=== PATIENT | male | born 1965 | race Caucasian/White ===

== ENCOUNTER 2016-05-29 14:08 | Emergency (ER) | payer OTHER ==
[~2016-05-29] VITALS: Ht 167.6 cm; Wt 72.6 kg
[~2016-05-29 14:08] MED LIST: BACTROBAN CREAM15 GM T; BLEPH-10 15 ML15 ML OPH; CEPHALEXIN500 M1 PO; CLEOCIN150 MG PO; FLEXERIL10 MG PO; KEFLEX500 MG PO; LIDEX 0.05% CRE15 GM T; Motrin,Rufen800 MG PO; NAPROSYN250 MG PO; NORCO 325 MG-51 TAB PO; PERCOCET 325 MG1 TA2 PO; Saline Flush Syr5 ML IV; ULTRAM50 MG PO; VICODIN 500 MG-1 TAB PO; VOLTAREN GEL1% TP; Zofran4 MG PO
[2016-05-29 14:14] VITALS: BP 162/98
[2016-05-29] MEDS ORDERED: BACTRIM DS 8001 TA1 PO (14:29)
[2016-05-29] MEDS ORDERED: NAPROSYN500 MG PO (14:32)
== END 2016-05-29 14:19 | disposition home or self-care (01) ==
LOC: ED 14:08
DX: J34.0 Abscess, furuncle and carbuncle of nose (principal); F17.200 Nicotine dependence, unspecified, uncomplicated

== ENCOUNTER 2016-08-27 08:21 | Emergency (ER) | payer OTHER ==
[~2016-08-27] VITALS: Ht 170.1 cm; Wt 77.1 kg
[~2016-08-27 08:21] MED LIST changes: +BACTRIM DS 8001 TA1 PO; +NAPROSYN500 MG PO
[2016-08-27 08:35] VITALS: BP 126/70
[2016-08-27] MEDS ORDERED: CLINDAMYCIN150 MG PO (09:56)
[2016-08-27] MEDS ORDERED: PERCOCET 325 MG1 TA2 PO (09:56)
== END 2016-08-27 10:04 | disposition home or self-care (01) ==
LOC: ED 08:21
DX: L02.01 Cutaneous abscess of face (principal); L03.211 Cellulitis of face; F12.10 Cannabis abuse, uncomplicated; F17.200 Nicotine dependence, unspecified, uncomplicated; F14.10 Cocaine abuse, uncomplicated; J45.909 Unspecified asthma, uncomplicated

== ENCOUNTER 2017-05-31 16:57 | Emergency (ER) | payer OTHER ==
[~2017-05-31] VITALS: Ht 170.1 cm; Wt 79.4 kg
[~2017-05-31 16:57] MED LIST changes: +CLINDAMYCIN150 MG PO
[2017-05-31] MEDS ORDERED: BUPREN/NALOX SUB 8-2 (17:07)
[2017-05-31 17:41] LABS: BASO # 0.1 10*3/uL (0.0-0.1); BASO % 0.7 % (0.0-1.0); EOS # 0.1 10*3/uL (0.0-0.4); EOS % 0.6 % (1.0-4.0); HEMOGLOBIN 16.2 g/dl (14.0-18.0); LYMPH # 2.7 10*3/uL (1.3-4.4); LYMPH % 32.4 % (27.0-41.0); MEAN CELL VOLUME 91.3 fl (80.0-94.0); MEAN CORPUSCULAR HGB 32.1 pg (27.0-31.0); MEAN CORPUSCULAR HGB CONC 35.2 g/dl (33.0-37.0); MEAN PLATELET VOLUME 10.9 fl (9.6-12.3); MONO # 0.5 10*3/uL (0.1-1.0); MONO % 5.9 % (3.0-9.0); NEUT # 5.1 10*3/uL (2.3-7.9); NEUT % 60.3 % (47.0-73.0); PLATELET COUNT AUTOMATED 165 10*3/uL (130-400); RED BLOOD COUNT 5.04 10*6/uL (4.50-5.90); WHITE BLOOD COUNT 8.5 10*3/uL (4.8-10.8)
[2017-05-31 17:57] LABS: BILIRUBIN NEGATIVE (NEGATIVE); BLOOD NEGATIVE (NEGATIVE); CLARITY SL CLOUDY (CLEAR); COLOR YELLOW (YELLOW); GLUCOSE NEGATIVE (NEGATIVE); KETONE TRACE (NEGATIVE); LEUKO ESTERASE NEGATIVE (NEGATIVE); NITRITE NEGATIVE (NEGATIVE); PH 5.5 (5.0-9.0); SPECIFIC GRAVITY 1.025 (1.005-1.030); UROBILINOGEN 0.2 E.U./dl (0.2-1.0)
[2017-05-31 17:59] LABS: ALBUMIN 4.3 gm/dl (3.1-4.5); ALKALINE PHOSPHATASE 90 U/L (45-117); BUN 14 mg/dl (7-24); CHLORIDE 105 mmol/L (98-107); CREATININE 1.15 mg/dL (0.70-1.30); ETHYL ALCOHOL < 3.0 mg/dl (<3); POTASSIUM 3.6 mmol/L (3.5-5.1); SGOT/AST 125 IU/L (3-35); SGPT/ALT 239 U/L (12-78); SODIUM 140 mmol/L (136-145); TOTAL PROTEIN 8.8 gm/dL (6.4-8.2)
[2017-05-31 18:01] LABS: EPITHELIAL CELLS 0-2; RBC 0-2 rbc/hpf (0-2); WBC 0-2 wbc/hpf (0-5)
[2017-05-31 18:02] LABS: BACTERIA TRACE
[2017-05-31 18:07] LABS: URINE AMPHETAMINES < 1000 (1000ng/ml); URINE BARBITURATES < 200 (200ng/ml); URINE BENZODIAZEPINES < 200 (200ng/ml); URINE CANNABINOIDS (THC) > 50 (50ng/ml); URINE COCAINE > 300 (300ng/ml); URINE METHADONE < 300 (300ng/ml); URINE OPIATES < 300 (300ng/ml)
[2017-05-31 18:11] LABS: URINE PHENCYCLIDINE < 25 (25ng/ml)
[2017-06-01 08:32] VITALS: BP 120/70
== END 2017-06-01 12:32 | disposition short-term general hospital (02) ==
LOC: ED 16:57
PROVIDERS: Emergency Medicine
DX: F32.9 Major depressive disorder, single episode, unspecified (principal); F19.10 Other psychoactive substance abuse, uncomplicated; R74.0 Nonspecific elevation of levels of transaminase and lactic acid dehydrogenase [LDH]; F17.200 Nicotine dependence, unspecified, uncomplicated

== ENCOUNTER 2017-09-21 11:49 | Emergency (ER) | payer MEDICAID ==
[~2017-09-21] VITALS: Ht 170.1 cm; Wt 86.2 kg
[~2017-09-21 11:49] MED LIST changes: +BUPREN/NALOX SUB 8-2
[2017-09-21 11:54] VITALS: BP 144/88
[2017-09-21 12:57] LABS: URINE AMPHETAMINES < 1000 (1000ng/ml); URINE BARBITURATES < 200 (200ng/ml); URINE BENZODIAZEPINES < 200 (200ng/ml); URINE CANNABINOIDS (THC) > 50 (50ng/ml); URINE COCAINE > 300 (300ng/ml); URINE METHADONE < 300 (300ng/ml); URINE OPIATES < 300 (300ng/ml)
[2017-09-21 12:58] LABS: URINE PHENCYCLIDINE < 25 (25ng/ml)
== END 2017-09-21 13:50 | disposition home or self-care (01) ==
LOC: ED 11:49
PROVIDERS: Emergency Medicine
DX: F19.10 Other psychoactive substance abuse, uncomplicated (principal); F12.10 Cannabis abuse, uncomplicated; F14.10 Cocaine abuse, uncomplicated; F17.200 Nicotine dependence, unspecified, uncomplicated; I25.10 Atherosclerotic heart disease of native coronary artery without angina pectoris; J45.909 Unspecified asthma, uncomplicated; Z87.11 Personal history of peptic ulcer disease; Z98.890 Other specified postprocedural states

== ENCOUNTER 2019-01-29 13:52 | Emergency (ER) | payer OTHER ==
[~2019-01-29] VITALS: Ht 170.1 cm; Wt 77.1 kg
[~2019-01-29 13:52] MED LIST changes: +PREDNISONE20 M1 PO; +VISTARIL25 MG PO
[2019-01-29 13:53] VITALS: BP 144/89
[2019-01-29] MEDS ORDERED: TESSALON PERLE100 M1 PO (14:48)
[2019-01-29] MEDS ORDERED: PROVENTIL HFA6.7 GM INH (14:48)
[2019-01-29] MEDS ORDERED: DOXYCYCLINE100 M3 PO (14:48)
[2019-01-29] MEDS ORDERED: PREDNISONE20 M1 PO (14:48)
== END 2019-01-29 15:53 | disposition home or self-care (01) ==
LOC: ED 13:52
DX: J45.909 Unspecified asthma, uncomplicated (principal); F17.200 Nicotine dependence, unspecified, uncomplicated

== ENCOUNTER 2019-04-19 15:07 | Observation (INO) | payer OTHER ==
[~2019-04-19] VITALS: Ht 165.1 cm; Wt 73.9 kg
--- NOTE | ~2019-04-19 | EKG ---
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
--- NOTE | ~2019-04-19 | EKG ---
[place], [place] ELECTROCARDIOGRAM REPORT NAME: RACHEAL HOYT UNIT #: [id number] ROOM: 407 DOCTOR: HARIKA DRAFT REPORT BIRTHDATE: [birth year] 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1965 Requested By: DEREK BALL Order Number: [id number] Reading MD: Cher Sanchez MD Measurements Intervals Maxie Rate: 59 P: -82 OK: 171 QRS: 5 QRSD: 83 T: -18 QT: 423 QTc: 419 Interpretive Statements Sinus or ectopic atrial rhythm RSR' in V1 or V2, right VCD or RVH LVH by voltage Nonspecific T abnormalities, inferior leads Compared to ECG 10/17/2018 15:02:40 Ectopic atrial rhythm now present Left ventricular hypertrophy now present T-wave abnormality now present Sinus rhythm no longer present Electronically Signed On 04-20-2019 9:22:17 PST by Cher Sanchez MD CM:EKGRPT:ELECTROCARDIOGRAM REPORT [id number] DEREK SHABAZZ DRAFT REPORT DEREK BALL M.D.
--- NOTE | ~2019-04-19 | EKG ---
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
[~2019-04-19 15:07] MED LIST changes: +DOXYCYCLINE100 M3 PO; +PROVENTIL HFA6.7 GM INH; +TESSALON PERLE100 M1 PO
[2019-04-19 15:13] VITALS: BP 131/79
[2019-04-19] MEDS ORDERED: SUBOXONE 8 MG-1 EACH SL (15:16)
[2019-04-19 15:21] LABS: BASO % 0.3 % (0.0-1.0); EOS % 0.4 % (1.0-4.0); HEMATOCRIT 44.9 % (42.0-52.0); HEMOGLOBIN 15.5 g/dl (14.0-18.0); LYMPH # 3.9 10*3/uL (1.3-4.4); LYMPH % 42.3 % (27.0-41.0); MEAN CELL VOLUME 92.4 fl (80.0-94.0); MEAN CORPUSCULAR HGB 31.9 pg (27.0-31.0); MEAN CORPUSCULAR HGB CONC 34.5 g/dl (33.0-37.0); MEAN PLATELET VOLUME 11.3 fl (9.6-12.3); MONO # 0.7 10*3/uL (0.1-1.0); NEUT # 4.5 10*3/uL (2.3-7.9); NEUT % 48.9 % (47.0-73.0); PLATELET COUNT AUTOMATED 150 10*3/uL (130-400); RED BLOOD COUNT 4.86 10*6/uL (4.50-5.90); WHITE BLOOD COUNT 9.1 10*3/uL (4.8-10.8)
[2019-04-19 15:31] LABS: ACT PARTIAL THROMBO TIME 26.3 SECONDS (20.0-32.1)
[2019-04-19 15:39] LABS: ALKALINE PHOSPHATASE 66 U/L (45-117); BUN 12 mg/dl (7-24); CHLORIDE 110 mmol/L (98-107); CREATININE 1.26 mg/dL (0.70-1.30); POTASSIUM 3.4 mmol/L (3.5-5.1); SGOT/AST 34 IU/L (3-35); SGPT/ALT 33 U/L (12-78); SODIUM 142 mmol/L (136-145); TOTAL PROTEIN 7.9 gm/dL (6.4-8.2)
[2019-04-19 15:48] LABS: TROPONIN I < 0.015 ng/ml (<0.045)
[2019-04-19 17:19] LABS: BILIRUBIN NEGATIVE (NEGATIVE); BLOOD NEGATIVE (NEGATIVE); CLARITY CLEAR (CLEAR); COLOR YELLOW (YELLOW); GLUCOSE NEGATIVE (NEGATIVE); KETONE NEGATIVE (NEGATIVE); LEUKO ESTERASE NEGATIVE (NEGATIVE); NITRITE NEGATIVE (NEGATIVE); SPECIFIC GRAVITY 1.025 (1.005-1.030); UROBILINOGEN 0.2 E.U./dl (0.2-1.0)
[2019-04-19 17:34] LABS: CALCIUM OXALATE CRYSTALS 1+
[2019-04-19 17:40] LABS: URINE AMPHETAMINES < 1000 (1000ng/ml); URINE BARBITURATES < 200 (200ng/ml); URINE BENZODIAZEPINES < 200 (200ng/ml); URINE CANNABINOIDS (THC) > 50 (50ng/ml); URINE COCAINE > 300 (300ng/ml); URINE METHADONE < 300 (300ng/ml); URINE OPIATES < 300 (300ng/ml)
[2019-04-19 17:43] LABS: URINE PHENCYCLIDINE < 25 (25ng/ml)
--- NOTE | 2019-04-19 18:02 | NUR ---
[facility] , under the services of JERI Mora DO with a diagnosis of CHEST PAIN. Chief complaint is DENIES C/O. Patient arrived via bed from ER. Monitor applied. Initial assessment completed. Vital signs taken and recorded. JERI MORA DO notified of admission to the unit. Orders received. See assessment for past medical history, medications and allergies. Patient and/or family oriented to unit. [facility] EDU visitation policy reviewed. Clothing/patient valuable form completed. PETEY SALINAS
--- NOTE | 2019-04-19 19:35 | NUR ---
IN TO SEE PATIENT. PATIENT RELAXING RESPIRATIONS EASY, NONLABORED. NO COMPLAINTS OTHER THAN REQUESTING NICOTINE PATCH. PATIENT STATES HE HAS BEEN SMOKING FOR OVER 30 YEARS AND SMOKES HALF A PACK A DAY. CALL LIGHT IS WITHIN REACH. WILL MONITOR.
--- NOTE | 2019-04-19 19:35 | NUR ---
PT REQUESTING NICOTINE PATIENT. PT STATES HE SMOKES A PACK AND A HALF PER DAY. INFORMED. SEE NEW ORDERS.
[2019-04-19 20:00] VITALS: BP 132/78
--- NOTE | 2019-04-19 22:00 | NUR ---
INFORMED PT HAVING MULTIPLE DIAGNOSIS FOR ADMISSION. PER POLICY PT IS TO BE ADMITTED, BUT IS STILL UNDER OBSERVATION. STATED THAT HE WOULD LOOK INTO IT.
[2019-04-20] VITALS: BP 129/73
--- NOTE | 2019-04-20 01:10 | NUR ---
ED REGISTRATION CALLED TO INFORM THEY HAD TO LET PATIENT BACK IN FROM OUTSIDE. UPON ENTERING MY PATIENTS ROOM I NOTICED HE WAS NOT IN HIS ROOM. PT RETURNEDTO HIS ROOM AND STATED HE WAS NOT TRYING TO LEAVE HE JUST WENT TO GET SOME MAGAZINES OUTSIDE AND LOOK AT THE VENDING MACHINE BECAUSE HE WAS HUNGRY. DR. EDUARDO INFORMED OF THE SITUATION AND STATED TO CONTACT THE DIRECTOR [employer]OTHER[employer]PER[employer] AND SEE WHAT SHE WANTED TO BE DONE. DIRECTOR [employer]PER[employer] LILLIE INFORMED AND STATED TO MAKE SURE THE PATIENT KNOWS THAT HE IS NOT ALLOWED TO LEAVE THE FLOOR AND IF HE IS TO LEAVE THE FLOOR AGAIN HE WILL HAVE TO LEAVE. PT STATES THAT HE DID NOT KNOW HE COULDN'T LEAVE AND WILL NOT LEAVE AGAIN.
--- NOTE | 2019-04-20 04:55 | NUR ---
24 HR chart check completed.
[2019-04-20 06:47] LABS: BASO # 0.1 10*3/uL (0.0-0.1); BASO % 0.6 % (0.0-1.0); EOS # 0.1 10*3/uL (0.0-0.4); EOS % 1.4 % (1.0-4.0); HEMATOCRIT 42.3 % (42.0-52.0); HEMOGLOBIN 14.2 g/dl (14.0-18.0); LYMPH # 4.8 10*3/uL (1.3-4.4); MEAN CORPUSCULAR HGB 31.2 pg (27.0-31.0); MEAN CORPUSCULAR HGB CONC 33.6 g/dl (33.0-37.0); MEAN PLATELET VOLUME 11.7 fl (9.6-12.3); MONO # 0.5 10*3/uL (0.1-1.0); MONO % 6.2 % (3.0-9.0); NEUT # 2.5 10*3/uL (2.3-7.9); NEUT % 31.7 % (47.0-73.0); PLATELET COUNT AUTOMATED 144 10*3/uL (130-400); RED BLOOD COUNT 4.55 10*6/uL (4.50-5.90); RED CELL DISTRI WIDTH 13.1 % (0-14.5)
[2019-04-20 07:09] LABS: BUN 11 mg/dl (7-24); CHLORIDE 109 mmol/L (98-107); CREATININE 1.04 mg/dL (0.70-1.30); PHOSPHOROUS 3.7 mg/dL (2.5-4.9); POTASSIUM 4.1 mmol/L (3.5-5.1); SODIUM 142 mmol/L (136-145)
[2019-04-20 08:00] VITALS: BP 136/71
--- NOTE | 2019-04-20 13:22 | NUR ---
[facility] Discharge instructions reviewed with patient/family. Patient receptive and verbalizes understanding. Follow-up care arranged. Written instructions given to patient/family. PETEY SALINAS
== END 2019-04-20 13:22 | disposition home or self-care (01) ==
LOC: ED 15:07 → EDHOLD 16:51 → 4E 16:51
PROVIDERS: Emergency Medicine; Hospitalist; Nurse Practitioner Family; ADMIT Internal Medicine
DX: R07.89 Other chest pain (principal); F41.9 Anxiety disorder, unspecified; F12.10 Cannabis abuse, uncomplicated; F14.10 Cocaine abuse, uncomplicated; F17.210 Nicotine dependence, cigarettes, uncomplicated; E87.6 Hypokalemia; E87.8 Other disorders of electrolyte and fluid balance, not elsewhere classified

== ENCOUNTER 2019-10-15 10:37 | Emergency (ER) | payer OTHER ==
[~2019-10-15] VITALS: Ht 170.1 cm; Wt 83.5 kg
[~2019-10-15 10:37] MED LIST changes: +SUBOXONE 8 MG-1 EACH SL
[2019-10-15 10:44] VITALS: BP 163/85
[2019-10-15 11:06] LABS: BASO % 0.5 % (0.0-1.0); EOS # 0.1 10*3/uL (0.0-0.4); EOS % 1.5 % (1.0-4.0); HEMATOCRIT 42.7 % (42.0-52.0); LYMPH # 3.2 10*3/uL (1.3-4.4); LYMPH % 41.8 % (27.0-41.0); MEAN CELL VOLUME 90.9 fl (80.0-94.0); MEAN CORPUSCULAR HGB 31.9 pg (27.0-31.0); MEAN CORPUSCULAR HGB CONC 35.1 g/dl (33.0-37.0); MEAN PLATELET VOLUME 11.7 fl (9.6-12.3); MONO # 0.6 10*3/uL (0.1-1.0); MONO % 7.7 % (3.0-9.0); NEUT # 3.6 10*3/uL (2.3-7.9); NEUT % 48.2 % (47.0-73.0); PLATELET COUNT AUTOMATED 144 10*3/uL (130-400); RED CELL DISTRI WIDTH 13.1 % (0-14.5); WHITE BLOOD COUNT 7.5 10*3/uL (4.8-10.8)
[2019-10-15 11:15] LABS: ACT PARTIAL THROMBO TIME 29.8 SECONDS (20.0-32.1); INTERNATIONAL NORM RATIO 1.1 (2.0-3.5)
[2019-10-15 11:21] LABS: ALBUMIN 3.5 gm/dl (3.1-4.5); ALKALINE PHOSPHATASE 79 U/L (45-117); BUN 13 mg/dl (7-24); CHLORIDE 110 mmol/L (98-107); CREATININE 1.08 mg/dL (0.70-1.30); POTASSIUM 3.4 mmol/L (3.5-5.1); SGOT/AST 189 IU/L (3-35); SGPT/ALT 225 U/L (12-78); SODIUM 139 mmol/L (136-145); TOTAL PROTEIN 7.4 gm/dL (6.4-8.2)
[2019-10-15 11:25] LABS: TROPONIN I < 0.015 ng/ml (<0.045)
== END 2019-10-15 12:13 | disposition home or self-care (01) ==
LOC: ED 10:37
PROVIDERS: Emergency Medicine
DX: R07.89 Other chest pain (principal); F14.90 Cocaine use, unspecified, uncomplicated; F12.90 Cannabis use, unspecified, uncomplicated; F17.200 Nicotine dependence, unspecified, uncomplicated; Z79.899 Other long term (current) drug therapy; Z98.890 Other specified postprocedural states

== ENCOUNTER 2020-06-19 07:09 | Emergency (ER) | payer OTHER ==
[~2020-06-19] VITALS: Ht 170.1 cm; Wt 72.6 kg
[2020-06-19 07:14] VITALS: BP 178/72
== END 2020-06-19 07:23 | disposition home or self-care (01) ==
LOC: ED 07:09
DX: S39.012A Strain of muscle, fascia and tendon of lower back, initial encounter (principal); J45.909 Unspecified asthma, uncomplicated; F32.9 Major depressive disorder, single episode, unspecified; I25.10 Atherosclerotic heart disease of native coronary artery without angina pectoris; F17.200 Nicotine dependence, unspecified, uncomplicated; Z79.899 Other long term (current) drug therapy; Z98.890 Other specified postprocedural states; V09.9XXA Pedestrian injured in unspecified transport accident, initial encounter; Y93.89 Activity, other specified; Y92.488 Other paved roadways as the place of occurrence of the external cause; Y99.8 Other external cause status

== ENCOUNTER 2022-10-23 06:21 | Emergency (ER) | payer OTHER ==
[2022-10-23 06:29] VITALS: BP 109/84
== END 2022-10-23 07:01 | disposition home or self-care (01) ==
LOC: ED 06:21
DX: L23.7 Allergic contact dermatitis due to plants, except food (principal); F41.9 Anxiety disorder, unspecified; J45.909 Unspecified asthma, uncomplicated; F32.A Depression, unspecified; E87.8 Other disorders of electrolyte and fluid balance, not elsewhere classified; E87.6 Hypokalemia; Z88.8 Allergy status to other drugs, medicaments and biological substances; F12.90 Cannabis use, unspecified, uncomplicated; Z98.890 Other specified postprocedural states; F17.200 Nicotine dependence, unspecified, uncomplicated; F14.90 Cocaine use, unspecified, uncomplicated

== ENCOUNTER 2024-02-15 12:53 | Emergency (ER) | payer OTHER ==
[~2024-02-15] VITALS: Ht 170.1 cm; Wt 68.0 kg
[2024-02-15 13:30] VITALS: BP 137/114
[2024-02-15] MEDS ORDERED: IOHEXOL 300 MG/ML 100 ML VIAL IV ONE (13:45)
[2024-02-15 13:51] LABS: BASO % 0.4 % (0.0-1.0); EOS # 0.1 10*3/uL (0.0-0.4); EOS % 1.8 % (1.0-4.0); LYMPH # 2.9 10*3/uL (1.3-4.4); LYMPH % 36.6 % (27.0-41.0); MEAN CELL VOLUME 92.6 fl (80.0-94.0); MEAN CORPUSCULAR HGB 31.5 pg (27.0-31.0); MEAN PLATELET VOLUME 10.8 fl (9.6-12.3); MONO # 0.7 10*3/uL (0.1-1.0); MONO % 8.3 % (3.0-9.0); NEUT # 4.2 10*3/uL (2.3-7.9); NEUT % 52.6 % (47.0-73.0); PLATELET COUNT AUTOMATED 161 10*3/uL (130-400); RED BLOOD COUNT 4.86 10*6/uL (4.50-5.90); RED CELL DISTRI WIDTH 12.6 % (0-14.5); WHITE BLOOD COUNT 7.9 10*3/uL (4.8-10.8)
[2024-02-15] MEDS ORDERED: IOHEXOL 300 MG/ML 100 ML VIAL ONE (14:05)
[2024-02-15 14:12] LABS: BUN 13 mg/dl (9-23); CHLORIDE 107 mmol/L (98-107); POTASSIUM 4.2 mmol/L (3.4-5.1)
[2024-02-15] MEDS ORDERED: Piperacillin Sodium/Tazobact 100 ML IV ONE (15:20)
[2024-02-15] MEDS ORDERED: CIPRO500 MG PO (15:27)
[2024-02-15] MEDS ORDERED: CLINDAMYCIN HC300 MG PO (15:27)
== END 2024-02-15 16:24 | disposition home or self-care (01) ==
LOC: ED 12:53
PROVIDERS: Nurse Practitioner Family
DX: L02.211 Cutaneous abscess of abdominal wall (principal); F17.200 Nicotine dependence, unspecified, uncomplicated; F12.90 Cannabis use, unspecified, uncomplicated; F14.90 Cocaine use, unspecified, uncomplicated; Z98.890 Other specified postprocedural states

== ENCOUNTER 2024-10-13 12:57 | Emergency (ER) | payer OTHER ==
[~2024-10-13] VITALS: Ht 170.1 cm; Wt 72.6 kg
[~2024-10-13 12:57] MED LIST changes: +CIPRO500 MG PO; +CLINDAMYCIN HC300 MG PO
[2024-10-13 13:22] VITALS: BP 123/69
[2024-10-13] MEDS ORDERED: VIBRAMYCIN100 MG PO (15:19)
== END 2024-10-13 15:29 | disposition home or self-care (01) ==
LOC: ED 12:57
DX: S00.06XA Insect bite (nonvenomous) of scalp, initial encounter (principal); L03.811 Cellulitis of head [any part, except face]; J45.909 Unspecified asthma, uncomplicated; F12.90 Cannabis use, unspecified, uncomplicated; F17.200 Nicotine dependence, unspecified, uncomplicated; F14.10 Cocaine abuse, uncomplicated; Z98.890 Other specified postprocedural states; W57.XXXA Bitten or stung by nonvenomous insect and other nonvenomous arthropods, initial encounter; Y93.89 Activity, other specified; Y92.89 Other specified places as the place of occurrence of the external cause; Y99.8 Other external cause status

== ENCOUNTER 2025-04-05 13:16 | Emergency (ER) | payer OTHER ==
[~2025-04-05] VITALS: Ht 167.6 cm; Wt 72.6 kg
[~2025-04-05 13:16] MED LIST changes: +VIBRAMYCIN100 MG PO
[2025-04-05 13:35] VITALS: BP 122/93
== END 2025-04-05 15:36 | disposition left against medical advice (07) ==
LOC: ED 13:16
DX: S09.90XA Unspecified injury of head, initial encounter (principal); J45.909 Unspecified asthma, uncomplicated; F12.90 Cannabis use, unspecified, uncomplicated; F14.90 Cocaine use, unspecified, uncomplicated; F17.210 Nicotine dependence, cigarettes, uncomplicated; Z98.890 Other specified postprocedural states; W22.01XA Walked into wall, initial encounter; Y93.89 Activity, other specified; Y92.89 Other specified places as the place of occurrence of the external cause; Y99.8 Other external cause status